=== PATIENT | male | born 1985 | race Caucasian/White ===

== ENCOUNTER 2018-11-25 18:25 | Emergency (ER) | payer SELFPAY ==
[2018-11-25 18:35] VITALS: BP 158/84; PULSE 93; TEMP 98.2; BMI 36.9
--- NOTE | 2018-11-25 19:20 | PDOC ---
History of Present Illness - General Chief Complaint: Rectal Bleed Stated Complaint: BLOOD IN STOOL Time Seen by Provider: 11/25/18 19:19 - History of Present Illness Initial Comments: 33 year old male with no PMH (but lack of PCP follow up in the past 4 years) presenting with right lower quadrant abdominal pain and rectal bleeding for the past few months. States that he drinks 12 beers a day on the weekends and eats a lot of spicy food. Denies smoking or other drug usage. His recal bleeding has lasted 3-4 months but worsened over the past week in the setting of constipation. Denies any rectal pain but does have rlq pain. He has blood in the toilet and on the toilet paper. Denies any fevers, chills, nausea, vomiting or other symptoms. 11/25/18 19:43 Past History - Past Medical History Allergies/Adverse Reactions: Allergies Allergy/AdvReac Type Severity Reaction Status Date / Time No Known Allergies Allergy Verified 11/25/18 18:35 Home Medications: Ambulatory Orders Sennosides [Senna] 8.6 mg PO DAILY 20 Days #20 tablet 11/25/18 - Suicide/Smoking/Psychosocial Hx Smoking Status: Yes Smoking History: Never smoked Number of Cigarettes Smoked Daily: 4 Review of Systems - Review of Systems Constitutional: No: Chills, Diaphoresis, Fever HEENTM: No: Blurred Vision, Tearing Respiratory: No: Cough, Orthopnea, Shortness of Breath ABD/GI: Yes: Blood Streaked Bowels, Constipated. No: Diarrhea, Nausea, Vomiting : No: Burning, Dysuria, Discharge, Hematuria, Incontinence Musculoskeletal: No: Back Pain, Joint Pain Integumentary: No: Bruising, Erythema, Flushing, Lesions Neurological: No: Headache, Numbness, Paresthesia Psychiatric: No: Anxiety, Depression Hematologic/Lymphatic: No: Anemia, Blood Clots, Easy Bleeding *Physical Exam - Vital Signs Last Vital Signs Temp Pulse Resp BP Pulse Ox 98.2 F 93 H 18 158/84 99 11/25/18 18:34 11/25/18 18:34 11/25/18 18:34 11/25/18 18:34 11/25/18 18:34 - Physical Exam General Appearance: Yes: Nourished, Appropriately Dressed. No: Apparent Distress HEENT: positive: EOMI, RADHA, Normal ENT Inspection, Normal Voice Neck: positive: Trachea midline, Normal Thyroid, Supple. negative: Tender, Rigid Respiratory/Chest: positive: Lungs Clear, Normal Breath Sounds. negative: Chest Tender, Respiratory Distress, Accessory Muscle Use Cardiovascular: positive: Regular Rhythm, Regular Rate Gastrointestinal/Abdominal: positive: Normal Bowel Sounds, Flat, Soft. negative : Tender Rectal Exam: positive: heme negative stool, normal rectal tone, hemorrhoids. negative: normal exam (internal hemorrhoid at 5 oclock, soft, non thrombosed), melena Lymphatic: negative: Adenopathy, Tenderness Musculoskeletal: positive: Normal Inspection. negative: Decreased Range of Motion Extremity: positive: Normal Capillary Refill, Normal Inspection, Normal Range of Motion. negative: Tender Integumentary: positive: Normal Color, Dry, Warm Neurologic: positive: Fully Oriented, Alert, Normal Mood/Affect, Normal Response , Motor Strength 5/5 Moderate Sedation - Procedure Monitoring Vital Signs: Procedure Monitoring Vital Signs Temperature 98.2 F 11/25/18 18:34 Pulse Rate 93 H 11/25/18 18:34 Respiratory Rate 18 11/25/18 18:34 Blood Pressure 158/84 11/25/18 18:34 O2 Sat by Pulse Oximetry (%) 99 11/25/18 18:34 ED Treatment Course - LABORATORY CBC & Chemistry Diagram: 11/25/18 19:42 11/25/18 19:42 Medical Decision Making - Medical Decision Making 33 year old male with blood in his stool but stool occult negative here and CBC WNL. Internal hemorrhoid detected on rectal exam without bleeding which is likely the source of the bleeding as patient admits to constipation. However, patient well appearing and VSS. Patient given prescription for senna and follow up with GI. 11/25/18 20:47 Chemistry machine was down and patient was continuously asking to go home. We placed a call back for abnormal chemistry and gave the patient strict return precautions and follow up instructions. *DC/Admit/Observation/Transfer Diagnosis at time of Disposition: Rectal bleeding, Internal hemorrhoid, bleeding - Discharge Dispostion Disposition: HOME Condition at time of disposition: Improved Decision to Admit order: No - Prescriptions Prescriptions: Sennosides [Senna] 8.6 mg PO DAILY 20 Days #20 tablet - Referrals Schedule a call back: chemistry Referrals: Wanda Chen MD [Staff Physician] - - Patient Instructions Printed Discharge Instructions: DI for Hemorrhoids Additional Instructions: Por favor use el senna diariamente para el estreimiento. Por favor, detngase si tiene diarrhe, a Evite el alcohol y las comidas picantes. Por favor beto keegan marck con el [facility] y encontrar un mdico de atencin primaria en nuestra clnica. - Post Discharge Activity
[2018-11-25 20:00] LABS: BASO % 0.8 % (0-2.0); EOS % 2.9 % (0-4.5); HEMOGLOBIN 15.7 GM/dL (11.7-16.9); LYMPH % 30.7 % (8-40); MCH 31.3 pg (25.7-33.7); MCHC 35.6 g/dl (32.0-35.9); MEAN PLT VOLUME 8.6 fl (7.5-11.1); MONO % 8.6 % (3.8-10.2); PLATELET COUNT 223 K/MM3 (134-434); RDW 12.5 % (11.9-15.9); WHITE BLOOD COUNT 8.4 K/mm3 (4.0-10.0)
--- NOTE | 2018-11-25 20:26 | PDOC ---
Attending Attestation - Resident Resident Name: Manjinder Mesa - ED Attending Attestation I have performed the following: I have examined & evaluated the patient, The case was reviewed & discussed with the resident, I agree w/resident's findings & plan, Exceptions are as noted - Medical Decision Making 11/25/18 20:16 A portion of this note was documented by scribe services under my direction. I have reviewed the details of the note, within reason, and agree with the documentation with the following case summary and management plan written by me. Patient treated in the ED. Nursing notes are reviewed and incorporated into the medical decision-making. Vital signs reviewed. Peripheral IV access obtained by the nurse, laboratory studies are drawn and sent, reviewed and interpreted by myself. Vital Signs Temp Pulse Resp BP Pulse Ox 98.2 F 93 H 18 158/84 99 11/25/18 18:34 11/25/18 18:34 11/25/18 18:34 11/25/18 18:34 11/25/18 18:34 33-year-old male patient with no past medical history presents with blood per rectum. The patient reports that the symptoms were ongoing for several months. He reports that he has intermittent red blood in stool for the last several months. Typically moves his bowels daily. No history of constipation. Does not have a doctor or PMD. Never had a colonoscopy. No family history of colon cancer. Pt stated that the blood in stools has been persistent. Today, noted some mild RLQ pain that resolved with moving his bowels. Currently denies abdominal pain. As per Dr. Mesa, patient with internal hemorrhoids. The patient does not have any abdominal pain and appears well. I suspect that the patient likely has hemorrhoids as his source of symptoms. Will need sitz bath, stool softeners, and preparation H. However, given the chronicity of complaints, the patient can follow up as an outpatient. The linux architect will set up an appointment with internal medicine clinic. The patient is agreeable with the plan and would like to follow up as an outpatient. <Sabas Lorenzana - Last Filed: 11/25/18 20:30> - HPI HPI: 11/25/18 20:47 The patient is a 33 year old male, with no significant PMH, who presents to the emergency department with few months intermittent rectal bleeding which has worsened the last couple of days. Patient also notes some RLQ pain, but is only sometimes. Denies vomiting, change in appetite. This is the first time the patient is seeking help for this and has not seen a PCP in 4 years. The patient denies chest pain, shortness of breath, headache and dizziness. Denies fever, chills, nausea, vomit, diarrhea and constipation. Denies dysuria, frequency, urgency and hematuria. Allergies: NKA Past surgical history: Social history: EtOH PCP: None - Physicial Exam PE: 11/25/18 20:47 GENERAL: Awake, alert, and fully oriented, in no acute distress HEAD: No signs of trauma EYES: PERRLA, EOMI, sclera anicteric, conjunctiva clear ENT: Auricles normal inspection, hearing grossly normal, nares patent, oropharynx clear without exudates. Moist mucosa NECK: Normal ROM, supple, no lymphadenopathy, JVD, or masses ABDOMEN: Soft, nontender, normoactive bowel sounds. No guarding, no rebound. No masses NEUROLOGICAL: Cranial nerves II through XII grossly intact. Normal speech. SKIN: Warm, Dry, normal turgor, no rashes or lesions noted. <Joceline Holm - Last Filed: 11/25/18 20:48> Attestations - Attestations 11/25/18 20:48 Documentation prepared by Joceline Holm, acting as medical biller/coder for Sabas Lorenzana MD. <Joceline Holm - Last Filed: 11/25/18 20:48>
[2018-11-25] MEDS ORDERED: RANITIDINE HCL 150 MG/10 ML UNIT-DOSE PO ONE (20:29)
[2018-11-25] MEDS ORDERED: SUCRALFATE 1 GM/10 ML UNIT DOSE CUPS PO ONE (20:29)
[2018-11-25] MEDS ORDERED: RANITIDINE HCL 150 MG TABLET (FP) ONE (20:31)
[2018-11-25] MEDS ORDERED: SUCRALFATE 1 GM TABLET (FP) ONE (20:32)
[2018-11-25 20:49] LABS: INR 0.97 (0.83-1.09); PROTHROMBIN TIME (PATIENT) 11.5 SEC (9.7-13.0)
[2018-11-26 05:55] LABS: ANION GAP 9 MMOL/L (8-16); BLOOD UREA NITROGEN 14 mg/dL (7-18); CHLORIDE 107 mmol/L (98-107); CO2 24 mmol/L (21-32); GLUCOSE,RANDOM 99 mg/dL (74-106); POTASSIUM 3.7 mmol/L (3.5-5.1); SODIUM 140 mmol/L (136-145)
[2018-11-26 05:56] LABS: ALBUMIN 4.1 g/dl (3.4-5.0); ALK PHOS 87 U/L (45-117); BILIRUBIN,TOTAL 0.3 mg/dL (0.2-1); CALCIUM 8.9 mg/dL (8.5-10.1); SGOT/AST 40 U/L (15-37); SGPT/ALT 82 U/L (13-61); TOT PROT 7.1 g/dl (6.4-8.2)
== END 2018-11-25 22:08 | disposition home or self-care (01) ==
LOC: JER 18:25
DX: K64.8 Other hemorrhoids (principal)
CPT/HCPCS: 36415; 80053; 82272; 85025; 85610; 86850; 86900; 86901; 99282-25

== ENCOUNTER 2021-05-24 17:36 | Emergency (ER) | payer SELFPAY ==
[2021-05-24 17:48] VITALS: BMI 35.4
[2021-05-24] MEDS ORDERED: HALOPERIDOL LACTATE 5 MG/ML IM ONE (20:49)
[2021-05-24] MEDS ORDERED: DIPHTH,PERTUSS(ACELL),TET 0.5 ML DISP.SYRIN IM ONE ×2 (21:11→21:12)
[2021-05-24] MEDS ORDERED: HALOPERIDOL LACTATE 5 MG/ML ONE (21:11)
[2021-05-24] MEDS ORDERED: LIDOCAINE 2.5%/PRILOCAINE 2.5% 30 GRAM TUBE TP ONE (22:49)
[2021-05-24] MEDS ORDERED: LIDOCAINE 2.5%/PRILOCAINE 2.5% (5 Gram/TUBE) TP ONE (23:15)
[2021-05-25 01:35] VITALS: BP 150/93; PULSE 106; TEMP 98.6
== END 2021-05-25 05:35 | disposition home or self-care (01) ==
LOC: JER 17:36
PROC: 0HQ0XZZ Repair Scalp Skin, External Approach (ICD-10-PCS; principal; 2021-05-24)
PROC: 3E0234Z Introduction of Serum, Toxoid and Vaccine into Muscle, Percutaneous Approach (ICD-10-PCS; 2021-05-24)
PROC: 3E023GC Introduction of Other Therapeutic Substance into Muscle, Percutaneous Approach (ICD-10-PCS; 2021-05-24)
DX: S01.82XA Laceration with foreign body of other part of head, initial encounter (principal); F10.920 Alcohol use, unspecified with intoxication, uncomplicated; W01.0XXA Fall on same level from slipping, tripping and stumbling without subsequent striking against object, initial encounter; Y92.002 Bathroom of unspecified non-institutional (private) residence as the place of occurrence of the external cause
CPT/HCPCS: 36415; 70450-TC; 80307; 90715; 99284-25

== ENCOUNTER 2021-06-01 13:27 | Emergency (ER) | payer SELFPAY ==
[2021-06-01 13:39] VITALS: BP 150/78; PULSE 81; BMI 34.0
== END 2021-06-01 14:43 | disposition home or self-care (01) ==
LOC: JERFT 13:27
DX: Z48.02 Encounter for removal of sutures (principal)
CPT/HCPCS: 99281-25

== ENCOUNTER 2024-03-02 19:08 | Emergency (ER) | payer OTHER ==
[2024-03-02 19:16] VITALS: BP 144/93; PULSE 96; RESP 20; TEMP 99; BMI 45.0
[2024-03-02] MEDS: ACETAMINOPHEN 500 MG TABLET (FP) PO ONE (20:01)
[2024-03-02] MEDS ORDERED: ACETAMINOPHEN 500 MG TABLET (FP) ONE (20:02)
[2024-03-02 20:20] LABS: BASO % 0.8 % (0-2.0); EOS % 5.8 % (0-4.5); HEMATOCRIT 42.5 % (35.4-49); HEMOGLOBIN 14.8 GM/dL (11.7-16.9); LYMPH % 30.2 % (8-40); MCH 30.5 pg (25.7-33.7); MCHC 34.9 g/dl (32.0-35.9); MEAN CELL VOLUME 87.4 fl (80-96); MEAN PLT VOLUME 8.7 fl (7.5-11.1); MONO % 9.1 % (3.8-10.2); NEUT % 54.1 % (42.8-82.8); PLATELET COUNT 229 10^3/uL (134-434); RBC 4.86 M/mm3 (4.00-5.60); RDW 13.4 % (11.9-15.9); WHITE BLOOD COUNT 8.9 K/mm3 (4.0-10.0)
[2024-03-02 20:37] LABS: POTASSIUM 3.6 mmol/L (3.5-5.1)
[2024-03-02 20:42] LABS: ALBUMIN 3.8 g/dl (3.4-5.0); BLOOD UREA NITROGEN 20.1 mg/dL (7-18); CALCIUM 9.1 mg/dL (8.5-10.1)
[2024-03-02 20:46] LABS: CREATININE 1.1 mg/dL (0.55-1.3)
[2024-03-02 20:47] LABS: BILIRUBIN,TOTAL 0.3 mg/dL (0.2-1); TOT PROT 7.3 g/dl (6.4-8.2)
[2024-03-02] MEDS ORDERED: IBUPROFEN 600 MG TABLET (FP) PO ONE (23:54)
[2024-03-02] MEDS: IBUPROFEN 600 MG TABLET (FP) PO ONE (23:54)
== END 2024-03-02 23:55 | disposition home or self-care (01) ==
LOC: JERFT 19:08
DX: S09.90XA Unspecified injury of head, initial encounter (principal); K76.0 Fatty (change of) liver, not elsewhere classified; K57.30 Diverticulosis of large intestine without perforation or abscess without bleeding; F10.11 Alcohol abuse, in remission; W11.XXXA Fall on and from ladder, initial encounter
CPT/HCPCS: 36415; 70450-TC; 71260-TC; 72125-TC; 74177-TC; 80053; 85025; 99285-25; Q9967